=== PATIENT | male | born 1975 | race American Indian/Alaskan Native ===

== ENCOUNTER 2018-10-05 00:07 | Emergency (ER) | payer MEDICAID, OTHER ==
--- NOTE | 2018-10-05 00:36 | EDM.PDOC ---
ED HPI GENERAL MEDICAL PROBLEM - General Chief Complaint: Bite:Animal, Insect Stated Complaint: DOG BITE Time Seen by Provider: 10/05/18 00:10 Source of Information: Reports: Patient, Police History Limitations: Reports: No Limitations - History of Present Illness INITIAL COMMENTS - FREE TEXT/NARRATIVE: 42-year-old male who is been in custody for the last 36 hours, presents with inflammation and redness of the antecubital area of the left arm. He is a regular needle user for illicit drug use, and also recently was bitten by a dog on his arms and face. He was brought in by police, he is in the [facility]. No fevers or chills but increasing pain in the left arm with redness, prompted the visit. Onset: Gradual Duration: Day(s): (2 days) Location: Reports: Upper Extremity, Left Quality: Reports: Ache, Pressure Associated Symptoms: Reports: No Other Symptoms Left Lower Arm Pain Score (Numeric/FACES): 8 - Related Data Allergies Allergy/AdvReac Type Severity Reaction Status Date / Time Penicillins Allergy Hives Verified 10/05/18 00:23 Home Meds: Home Meds NK [No Known Home Meds] 10/05/18 [History] Past Medical History - Past Surgical History Other Musculoskeletal Surgeries/Procedures:: knee surgery - cartilage repair Social & Family History - Tobacco Use Smoking Status *Q: Current Every Day Smoker Years of Tobacco use: 20 Packs/Tins Daily: 0.5 - Caffeine Use Caffeine Use: Reports: Soda - Recreational Drug Use Recreational Drug Use: Yes Recreational Drug Type: Reports: Marijuana/Hashish, Methamphetamine Recreational Drug Use Frequency: Weekly ED ROS GENERAL - Review of Systems Review Of Systems: See Below Constitutional: Denies: Fever, Chills Respiratory: Denies: Shortness of Breath GI/Abdominal: Denies: Nausea, Vomiting Skin: Reports: Other (Numerous puncture wounds of both extremities, laceration across the bridge of the nose and scattered bruises of both extremities along with needle álvarez and tracks.) ED EXAM, ANIMAL BITE - Physical Exam Exam: See Below Exam Limited By: No Limitations General Appearance: Alert, No Apparent Distress Head: Other (A few facial abrasions and a laceration across the nasal bridge which is healing) Respiratory/Chest: No Respiratory Distress Extremities: Other (Numerous superficial bite álvarez and scratches to the upper extremities bruising. There is an erythematous slightly swollen and warm area on the antecubital area of the left arm, no fluctuance or abscess formation.) Course - Vital Signs Last Recorded V/S: Last Vital Signs Temp 98.8 F 10/05/18 00:20 Pulse 79 10/05/18 00:20 Resp 16 10/05/18 00:20 BP 109/63 10/05/18 00:20 Pulse Ox 99 10/05/18 00:20 - Re-Assessments/Exams Free Text/Narrative Re-Assessment/Exam: 10/05/18 00:34 Patient will be placed on clindamycin 300 mg 4 times a day for the next week. Recheck in the next 24-48 hours if not improving on the oral antibiotics. Departure - Departure Time of Disposition: 00:44 Disposition: DC/Tfer to Court of Law En 21 Clinical Impression: Cellulitis of left arm - Discharge Information Instructions: Cellulitis, Adult, [id number] Referrals: PCP,None [Primary Care Provider] - Forms: ED Department Discharge Care Plan Goals: Take 3 antibiotic pills tonight, followed by 2 pills 4 times a day until gone. Warm compresses to the infected area may be beneficial and keep wounds clean while healing. Return in the next 2-3 days if worsening despite treatment.
== END 2018-10-05 00:43 ==
LOC: JP.ED 00:07
DX: S50.872A Other superficial bite of left forearm, initial encounter (principal); S50.871A Other superficial bite of right forearm, initial encounter; L03.114 Cellulitis of left upper limb; S01.21XA Laceration without foreign body of nose, initial encounter; F17.210 Nicotine dependence, cigarettes, uncomplicated; Z88.0 Allergy status to penicillin; W54.0XXA Bitten by dog, initial encounter
CPT/HCPCS: 99283